=== PATIENT | female | born 2000 | race Caucasian/White ===

== ENCOUNTER 2023-08-21 07:57 | Outpatient (CLI) | payer OTHER | END 2023-08-21 07:58 | disposition home or self-care (01) | LOC: CSHULT 07:57 | PROVIDERS: ATTEND Physician Assistant Medical | DX: R10.12 Left upper quadrant pain (principal); R10.11 Right upper quadrant pain; R11.0 Nausea; R14.0 Abdominal distension (gaseous); R63.4 Abnormal weight loss | CPT/HCPCS: 76700 ==